=== PATIENT | female | born 1995 | race Caucasian/White ===

== ENCOUNTER 2021-08-28 16:20 | Emergency (ER) | payer MEDICAID ==
[~2021-08-28] VITALS: Ht 167.6 cm; Wt 81.0 kg
[2021-08-28 16:45] VITALS: BP 115/77
== END 2021-08-28 18:58 | disposition left against medical advice (07) ==
LOC: ER 16:20
DX: Z53.21 Procedure and treatment not carried out due to patient leaving prior to being seen by health care provider (principal)
CPT/HCPCS: 80053; 84702; 86850